=== PATIENT | female | born 1965 | race Caucasian/White ===

== ENCOUNTER 2017-04-17 08:56 | Emergency (ER) | payer MEDICAID | END 2017-04-17 14:08 | disposition left against medical advice (07) | LOC: ER 14:05 | DX: Z53.21 Procedure and treatment not carried out due to patient leaving prior to being seen by health care provider (principal) ==

== ENCOUNTER 2020-10-11 23:50 | Emergency (ER) | payer MEDICAID ==
[~2020-10-11] VITALS: Ht 160 cm; Wt 73.0 kg
[2020-10-12] MEDS ORDERED: KETOROLAC 15MG/ML VIAL IM ONE (00:45)
[2020-10-12] MEDS ORDERED: MORPHINE SULFATE 4 MG/ML CPJ (NOT FOR IM USE) IV ONE ×2 (00:45→01:00)
[2020-10-12] MEDS ORDERED: MORPHINE SULFATE 10 MG/ML CPJ IM NR (01:15)
[2020-10-12 01:32] LABS: CLARITY URINE CLEAR (CLEAR); COLOR URINE YELLOW (YELLOW); KETONES URINE TRACE (NEGATIVE); LEUKOCYTE ESTERASE URINE TRACE (NEGATIVE); NITRITE URINE NEGATIVE (NEGATIVE); OCCULT BLOOD URINE NEGATIVE (NEGATIVE); PH URINE 5.5 (4.5-8.0); PROTEIN URINE NEGATIVE (NEGATIVE); SPECIFIC GRAVITY URINE 1.031 (1.005-1.030); UROBILINOGEN URINE 0.2 E.U./dL (0.2-1.0)
[2020-10-12] MEDS ORDERED: HYDR-4346 MT (02:23)
[2020-10-12] MEDS ORDERED: ACET-2708 MT (02:24)
[2020-10-12] MEDS ORDERED: IBUP-2029 MT (02:24)
[2020-10-12] MEDS ORDERED: MORPHINE SULFATE 4 MG/ML CPJ (NOT FOR IM USE) IV NR (03:00)
[2020-10-12 03:34] VITALS: BP 135/66
== END 2020-10-12 03:36 | disposition home or self-care (01) ==
LOC: ER 23:50
DX: M54.5 Low back pain (principal); I10 Essential (primary) hypertension; Z98.890 Other specified postprocedural states
CPT/HCPCS: 81003; 93005; 96372; 96374; 99284; J1885; J2270; Z7610